=== PATIENT | male | born 1940 | race Caucasian/White ===

== ENCOUNTER 2023-08-07 11:56 | Outpatient (CLI) | payer MEDICARE, BC ==
[2023-08-07 15:19] LABS: #Eosinphils 0.4 10x3/uL (0.0-0.5); #Monocytes 0.6 10x3/uL (0.0-1.1); #Neutrophils 4.3 10x3/uL (1.5-8.4); %Basophils 0.6 % (0.0-2.0); %Eosinophils 5.5 % (0.0-6.0); %Lymphocytes 21.4 % (18.0-47.0); %Monocytes 9.1 % (0.0-10.0); Hematocrit 45.7 % (38.8-50.0); Hemoglobin 15.2 g/dL (13.5-17.5); Mean Corpuscular HGB CONC 33.3 g/dL (32.0-36.0); Mean Corpuscular Hemoglobin 29.5 pg (27.0-33.0); Mean Corpuscular Volume 88.7 fl (81.2-95.1); Mean Platelet Volume 10.4 fl (7.4-10.4); Platelet Count 174 10x3/uL (150-450); RBC Distribution Width 13.5 % (11.5-14.5); Red Blood Cell (RBC) Count 5.15 10x6/uL (4.32-5.72); White Blood Cell (WBC) Count 6.9 10x3/uL (3.5-10.5)
[2023-08-07 15:23] LABS: ALT (SGPT) 13 U/L (8-55); AST (SGOT) 20 U/L (5-34); Albumin 4.1 g/dL (3.4-4.8); Alkaline Phosphatase 60 U/L (40-110); Anion Gap 15 mmol/L (10-20); BUN (Urea Nitrogen) 15 mg/dL (8.4-25.7); Bilirubin, Total 0.7 mg/dL (0.2-1.2); Calc. Creatinine Clearance 0 mL/min (70-130); Calcium 9.5 mg/dL (7.8-10.44); Carbon Dioxide 27 mmol/L (23-31); Chloride 103 mmol/L (98-107); Estimated GFR 85; Globulin 2.3 g/dL (2.4-3.5); Glucose 82 mg/dL (83-110); Potassium 4.3 mmol/L (3.5-5.1); Protein, Total 6.4 g/dL (5.8-8.1); Sodium 141 mmol/L (136-145)
== END 2023-08-07 11:57 | disposition home or self-care (01) ==
LOC: LABBT 11:56
PROVIDERS: ATTEND Internal Medicine Cardiovascular Disease
DX: Z01.812 Encounter for preprocedural laboratory examination (principal)
CPT/HCPCS: 80053; 85025

== ENCOUNTER 2023-08-11 06:06 | Day surgery (SDC) | payer MEDICARE, BC ==
[2023-08-07 12:45] VITALS: BMI 23.1
[2023-08-11] MEDS ORDERED: Nitroglycerin 50 MG/250 ML BOT 0 ML ONE (06:27)
[2023-08-11] MEDS ORDERED: Metoprolol Tartrate 5 MG/5 ML VIAL ONE (06:27)
[2023-08-11] MEDS ORDERED: Heparin 10,000 UNITS/ 10 ML VIAL ONE (06:27)
[2023-08-11] MEDS ORDERED: fentaNYL 50 mcg/mL 1 mL Vial ONE (06:27)
[2023-08-11] MEDS ORDERED: Midazolam HCl 2 mg/2 ml Vial ONE (06:27)
[2023-08-11] MEDS ORDERED: Iopamidol 370 76% 100 ML VIAL ONE (09:21)
== END 2023-08-11 13:10 | disposition home or self-care (01) ==
LOC: CCL 06:06
PROVIDERS: ATTEND Internal Medicine Cardiovascular Disease
PROC: 4A023N7 Measurement of Cardiac Sampling and Pressure, Left Heart, Percutaneous Approach (ICD-10-PCS; principal; 2023-08-11)
DX: R94.39 Abnormal result of other cardiovascular function study (principal); R06.02 Shortness of breath; R60.0 Localized edema; I45.2 Bifascicular block; I49.1 Atrial premature depolarization; I49.3 Ventricular premature depolarization; Z87.891 Personal history of nicotine dependence; Z88.1 Allergy status to other antibiotic agents; Z79.899 Other long term (current) drug therapy
CPT/HCPCS: 93458; C1769 ×2; J3010; 99152; 99153; J1644; J2250; Q9967